=== PATIENT | male | born 1975 | race Caucasian/White ===

== ENCOUNTER 2018-09-12 16:12 | Emergency (ER) | payer OTHER, SELFPAY ==
[2018-09-12 16:19] VITALS: BP 140/87; PULSE 80; RESP 18; TEMP 36.7; O2SAT 97
--- NOTE | 2018-09-12 16:48 | W.ED.GENAD ---
Discharge Plan Disposition Patient Disposition: HOME Condition: Fair Discharge Details Chief Complaint: Laceration Clinical Impression: Finger laceration Primary Care Provider: Patricia Kang ED Provider: Rosalinda Braden Home Meds and New Rx's Prescriptions: Continue valacyclovir 500 mg Tablet 1,000 mg PO TID PRN PRNRF: 0 Discharge Instructions Instructions: Finger Laceration (ED) Additional Instructions: Keep wound clean, dry, covered. Tylenol and/or ibuprofen as needed for discomfort. Please keep current dressing on for the next 24 hours. After that you may keep covered with Band-Aid. Continue to burton tape the fingers together to help with pain and swelling of the afflicted joints. Please return in 1 week for suture removal. If you develop signs of infection such as redness, warmth, drainage, increased pain, fever/chills or other new/worsening symptoms please seek care urgently once again. You may wash and running water but please do not soak as this may increase your risk of infection Referrals: Patricia Kang [Primary Care Provider] - Discharge Data Discharge Date/Time-TO BE ENTERED AT DEPARTURE: 09/12/18 18:32 Medical Decision Making Patient is a 43-year-old [id number] male presenting today with chief complaint of left hand injury. He reports that prior to arrival, while at work, his third and fourth digits were crushed between a loading dock and a truck. Reports he was quite quick and that he was able to stop the expansion of the loading dock immediately. Suffered a small lacerations to the PIP joint on the flexor surface of the third and fourth digits. Denies any altered sensation. 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 Has noted swelling and ecchymosis over the afflicted PIP joints. On exam, no ligamentous injury is noted. He has full ROM, sensation intact. Pain is minimal. However, given the swelling and mechanism of injury I am concerned for possible bony abnormality. Will obtain XR. Plan to close the wound over the flexor surface of the PIP joint of the 3rd digit as this is into the subcutaneous tissue. Wound opens with gentle extension of the digit. Patient is not UTD on tetanus, we will update this today. X-ray reviewed by radiologist. Advised mild swelling of the hand soft tissues but no fracture dislocation noted. Discussed closure of the wound to the third digit with the patient. Patient is a 7 mm wound to the subcutaneous tissue that with extension. This is directly over the PIP joint on the flexor surface. Procedure note: Using standard sterile technique, 1% lidocaine plain was used to perform a digital block. 5 cc was infiltrated. Patient tolerated this well and was sufficiently anesthetized the digit. The wound of both digits was then copiously irrigated with sterile saline and cleansed with chlorhexidine. Wounds are reported to base in bloodless field no foreign body or debris was noted. Attention was then turned to closure of the wound of the third digit. #2 simple interrupted stitches were placed using 5-0 nylon. Patient tolerated this well and extradural bandage was placed over both wounds. Wounds were then burton taped together to help with PIP discomfort. Discussed wound care with the patient. Encouraged LUANNE. ADvised she come back in one week for suture removal. We discussed new/worsening symptoms and when to seek care once again. In particuar, we discussed the signs and symptoms of infection. Discussed activites that he should avoid. As work involves soaking his hand, I have given work note. He will continue to splint and cocver wound. Disuccsed new/worsening symptom sand when to seek care urgently once again. A HPI General Mode of arrival: ambulatory. Date/Time Provider Initiated Documentation: 09/12/18 16:18. Limitations to Documentation: no limitations. Information obtained by: patient. History of Present Illness 43 year old M presents to the emergency department with the chief complaint of left hand injury, described as mild, with intensity rated at 2. Quality is described as aching, and is localized to the left and upper extremity. Patient reports no radiation. and it has been now resolved (reports that pain has greatly improved). Immobilization improves symptom(s), Movement worsens symptoms . Patient notes no other symptoms.; denies fever/chills and rash. Patient did receive the following treatments prior to arrival, none Related Data Home Medications Medication Instructions Recorded Confirmed valacyclovir 1,000 mg PO TID PRN PRN 09/12/18 09/12/18 Allergies Allergy/AdvReac Type Severity Reaction Status Date / Time No Known Allergies Allergy Unverified 08/20/17 14:37 General Stated Complaint: Laceration ADRYAN: 4 Review of Systems Constitutional Reports as per HPI and Denies weakness Musculoskeletal Reports as per HPI and Denies tingling Integumentary/Breasts Reports as per HPI Neurologic Denies radicular pain, Denies sensory deficit, Denies tingling, Denies paresthesias and Denies weakness [facility] Social History Smoking/Tobacco Use Status: Current every day Exam Const General: cooperative, healthy appearing, comfortable, no acute distress, well developed and well groomed Nutritional Appearance: average body habitus and well nourished Orientation: alert and awake Eyes General: appearance normal, both eyes and all related structures Resp Effort & Inspection: normal respiratory effort, able to speak in complete sentences and no respiratory distress Cardio Rate: regular rate Rhythm: regular rhythm Skin Lesions: lesions noted (Exam of the LUE significant for laceration into the subcutaneous tissue over the PIP joint of the 3rd digit. Full ROM, no evidence of ligamentous or bony abnormality. Brisk capillary refill. Full ROM. Second laceration 4mm in length . No surroudning area to suggest infection) Neuro General: alert and awake Cognition: normal cognition Speech: speech normal Gait: normal gait Motor: muscle tone normal throughout and strength 5/5 throughout Sensory Exam: no sensory deficits noted (2point intact) Extrem General: abnormal to inspection (patient has lacerations as above. Swelling to the PIP joint of te affected digits. Senstation intact. ), normal capillary refill and normal exam except as noted Psych Appearance: grossly normal and well kempt Mental Status: mental status grossly normal Speech and Movement: speech and movement normal Course Vital Signs Temperature 36.7 C 09/12/18 16:19 Pulse 80 09/12/18 16:19 Respiratory Rate 18 09/12/18 16:19 Blood Pressure 140/87 09/12/18 16:19 Pulse Oximetry 97 09/12/18 16:19 Temperature 36.7 C 09/12/18 16:19 Temperature Source Skin 09/12/18 16:19 Pulse 80 09/12/18 16:19 Respiratory Rate 18 09/12/18 16:19 Respiratory Effort 09/12/18 16:21 Blood Pressure 140/87 09/12/18 16:19 Blood Pressure Position Sitting 09/12/18 16:19 Pulse Oximetry 97 09/12/18 16:19 Oxygen Delivery Method Room Air 09/12/18 16:19 Oxygen Flow Rate 0 09/12/18 16:19 Pain Level 2 09/12/18 16:21
--- NOTE | 2018-09-12 17:17 | ED.GENADUL_ITS ---
Discharge Plan Disposition Patient Disposition: HOME Condition: Fair Discharge Details Chief Complaint: Laceration Clinical Impression: Finger laceration Primary Care Provider: Patricia Kang ED Provider: Rosalinda Braden Home Meds and New Rx's Prescriptions: Continue valacyclovir 500 mg Tablet 1,000 mg PO TID PRN PRNRF: 0 Discharge Instructions Instructions: Finger Laceration (ED) Additional Instructions: Keep wound clean, dry, covered. Tylenol and/or ibuprofen as needed for discomfort. Please keep current dressing on for the next 24 hours. After that you may keep covered with Band-Aid. Continue to burton tape the fingers together to help with pain and swelling of the afflicted joints. Please return in 1 week for suture removal. If you develop signs of infection such as redness , warmth, drainage, increased pain, fever/chills or other new/worsening symptoms please seek care urgently once again. You may wash and running water but please do not soak as this may increase your risk of infection Referrals: Patricia Kang [Primary Care Provider] - Discharge Data Discharge Date/Time-TO BE ENTERED AT DEPARTURE: 09/12/18 18:32 Medical Decision Making Patient is a 43-year-old [id number]-[id number] male presenting today with chief complaint of left hand injury. He reports that prior to arrival, while at work , his third and fourth digits were crushed between a loading dock and a truck. Reports he was quite quick and that he was able to stop the expansion of the loading dock immediately. Suffered a small lacerations to the PIP joint on the flexor surface of the third and fourth digits. Denies any altered sensation. 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 Has noted swelling and ecchymosis over the afflicted PIP joints. On exam, no ligamentous injury is noted. He has full ROM, sensation intact. Pain is minimal. However, given the swelling and mechanism of injury I am concerned for possible bony abnormality. Will obtain XR. Plan to close the wound over the flexor surface of the PIP joint of the 3rd digit as this is into the subcutaneous tissue. Wound opens with gentle extension of the digit. Patient is not UTD on tetanus, we will update this today. X-ray reviewed by radiologist. Advised mild swelling of the hand soft tissues but no fracture dislocation noted. Discussed closure of the wound to the third digit with the patient. Patient is a 7 mm wound to the subcutaneous tissue that with extension. This is directly over the PIP joint on the flexor surface. Procedure note: Using standard sterile technique, 1% lidocaine plain was used to perform a digital block. 5 cc was infiltrated. Patient tolerated this well and was sufficiently anesthetized the digit. The wound of both digits was then copiously irrigated with sterile saline and cleansed with chlorhexidine. Wounds are reported to base in bloodless field no foreign body or debris was noted. Attention was then turned to closure of the wound of the third digit. # 2 simple interrupted stitches were placed using 5-0 nylon. Patient tolerated this well and extradural bandage was placed over both wounds. Wounds were then burton taped together to help with PIP discomfort. Discussed wound care with the patient. Encouraged LUANNE. ADvised she come back in one week for suture removal. We discussed new/worsening symptoms and when to seek care once again. In particuar, we discussed the signs and symptoms of infection. Discussed activites that he should avoid. As work involves soaking his hand, I have given work note. He will continue to splint and cocver wound. Disuccsed new/worsening symptom sand when to seek care urgently once again. A HPI General Mode of arrival: ambulatory . Date/Time Provider Initiated Documentation: 09/12/18 16:18 . Limitations to Documentation: no limitations . Information obtained by: patient . History of Present Illness 43 year old M presents to the emergency department with the chief complaint of left hand injury, described as mild, with intensity rated at 2. Quality is described as aching, and is localized to the left and upper extremity. Patient reports no radiation. and it has been now resolved (reports that pain has greatly improved). Immobilization improves symptom(s), Movement worsens symptoms . Patient notes no other symptoms.; denies fever/chills and rash. Patient did receive the following treatments prior to arrival, none Related Data Home Medications Medication Instructions Recorded Confirmed valacyclovir 1,000 mg PO TID PRN PRN 09/12/18 09/12/18 Allergies Allergy/AdvReac Type Severity Reaction Status Date / Time No Known Allergies Allergy Unverified 08/20/17 14:37 General Stated Complaint: Laceration ADRYAN: 4 Review of Systems Constitutional Reports as per HPI and Denies weakness Musculoskeletal Reports as per HPI and Denies tingling Integumentary/Breasts Reports as per HPI Neurologic Denies radicular pain, Denies sensory deficit, Denies tingling, Denies paresthesias and Denies weakness [facility] Social History Smoking/Tobacco Use Status: Current every day Exam Const General: cooperative, healthy appearing, comfortable, no acute distress, well developed and well groomed Nutritional Appearance: average body habitus and well nourished Orientation: alert and awake Eyes General: appearance normal, both eyes and all related structures Resp Effort & Inspection: normal respiratory effort, able to speak in complete sentences and no respiratory distress Cardio Rate: regular rate Rhythm: regular rhythm Skin Lesions: lesions noted (Exam of the LUE significant for laceration into the subcutaneous tissue over the PIP joint of the 3rd digit. Full ROM, no evidence of ligamentous or bony abnormality. Brisk capillary refill. Full ROM. Second laceration 4mm in length . No surroudning area to suggest infection) Neuro General: alert and awake Cognition: normal cognition Speech: speech normal Gait: normal gait Motor: muscle tone normal throughout and strength 5/5 throughout Sensory Exam: no sensory deficits noted (2point intact) Extrem General: abnormal to inspection (patient has lacerations as above. Swelling to the PIP joint of te affected digits. Senstation intact. ), normal capillary refill and normal exam except as noted Psych Appearance: grossly normal and well kempt Mental Status: mental status grossly normal Speech and Movement: speech and movement normal Course Vital Signs Temperature 36.7 C 09/12/18 16:19 Pulse 80 09/12/18 16:19 Respiratory Rate 18 09/12/18 16:19 Blood Pressure 140/87 09/12/18 16:19 Pulse Oximetry 97 09/12/18 16:19 Temperature 36.7 C 09/12/18 16:19 Temperature Source Skin 09/12/18 16:19 Pulse 80 09/12/18 16:19 Respiratory Rate 18 09/12/18 16:19 Respiratory Effort 09/12/18 16:21 Blood Pressure 140/87 09/12/18 16:19 Blood Pressure Position Sitting 09/12/18 16:19 Pulse Oximetry 97 09/12/18 16:19 Oxygen Delivery Method Room Air 09/12/18 16:19 Oxygen Flow Rate 0 09/12/18 16:19 Pain Level 2 09/12/18 16:21
--- NOTE | 2018-09-12 17:22 | DI.RAD_ITS ---
SYMPTOM/DIAGNOSIS: CRUSH INJURY, PAIN, SWELLING LEFT HAND: Three views were obtained. No fracture is seen.
--- NOTE | 2018-09-12 17:31 | DI.VRAD_ITS ---
EXAM: XR Left Hand Complete, 3 or more Views EXAM DATE/TIME: 09/12/2018 5:23 PM CLINICAL HISTORY: 43 years old, male; Injury or trauma; Injury history: Blunt trauma, crush injury; Work related; Initial encounter; Blunt trauma (contusions or hematomas and crushing; Hand; Left; Injury date: 09/12; Injury details: Crush injury to 3rd and 4th digits. TECHNIQUE: XR Left hand 3 or more views. COMPARISON: No relevant prior studies available. FINDINGS: Bones/joints: Normal. Soft tissues: Mild swelling of the hand soft tissues. IMPRESSION: No fracture or dislocation. Dictated and Authenticated by: Ruddy Lombardo MD. Ordering:EZ SOLIS MD
[2018-09-12 18:13] VITALS: BP 122/75; PULSE 64; RESP 18; TEMP 36.8; O2SAT 97
== END 2018-09-12 18:32 | disposition home or self-care (01) ==
PROVIDERS: Emergency Provider Physician Assistant; PCP Nurse Practitioner Family
DX: S67.195A Crushing injury of left ring finger, initial encounter (principal); S67.197A Crushing injury of left little finger, initial encounter; S61.215A Laceration without foreign body of left ring finger without damage to nail, initial encounter; S61.217A Laceration without foreign body of left little finger without damage to nail, initial encounter; Y99.0 Civilian activity done for income or pay; W23.0XXA Caught, crushed, jammed, or pinched between moving objects, initial encounter
CPT/HCPCS: 12001; 90471; 99283; 73130; 99282

== ENCOUNTER 2018-09-20 18:42 | Emergency (ER) | payer SELFPAY ==
[2018-09-20 18:47] VITALS: BP 148/92; PULSE 76; RESP 18; TEMP 36.6; O2SAT 97
--- NOTE | 2018-09-20 18:51 | W.ED.GENAD ---
Discharge Plan Disposition Patient Disposition: HOME Condition: Improving Discharge Details Chief Complaint: SutureRem Clinical Impression: Visit for suture removal Primary Care Provider: Patricia Kang ED Provider: Baldemar Ferrari Home Meds and New Rx's Prescriptions: Continue valacyclovir 500 mg Tablet 1,000 mg PO TID PRN PRNRF: 0 Discharge Instructions Additional Instructions: Return for any acute concerns Resume normal routine. Medical Decision Making 43-year-old male presents for suture removal. He is laceration has been healing uneventfully and is without other complaint. Sutures removed and patient stable for discharge HPI General Mode of arrival: ambulatory. Date/Time Provider Initiated Documentation: 09/20/18 18:50. Limitations to Documentation: no limitations. Information obtained by: patient. History of Present Illness 43 year old M presents to the emergency department with the chief complaint of Suture removal, no other complaint, HPI Narrative: Patient states his right long finger, laceration has been healing well he presents for suture removal without other complaints Related Data Home Medications Medication Instructions Recorded Confirmed valacyclovir 1,000 mg PO TID PRN PRN 09/12/18 09/20/18 Allergies Allergy/AdvReac Type Severity Reaction Status Date / Time No Known Allergies Allergy Unverified 09/20/18 18:50 General Stated Complaint: SutureRem ADRYAN: 5 PFSH Social History Smoking/Tobacco Use Status: Current every day Exam Narrative Exam Narrative: GEN: awake, alert, oriented 3. Pleasant, well groomed, interactive. EXT: Full ROM, no edema, no rash. Right long finger with healing laceration on the palmar surface, [address] Normal range of motion Neuro: Grossly normal neurologic exam, conversant, interactive. Psych: Speech fluent, thoughts congruent, affect normal Course Vital Signs Temperature 36.6 C 09/20/18 18:47 Pulse 76 09/20/18 18:47 Respiratory Rate 18 09/20/18 18:47 Blood Pressure 148/92 H 09/20/18 18:47 Pulse Oximetry 97 09/20/18 18:47 Temperature 36.6 C 09/20/18 18:47 Temperature Source Skin 09/20/18 18:47 Pulse 76 09/20/18 18:47 Respiratory Rate 18 09/20/18 18:47 Respiratory Effort 09/20/18 18:49 Blood Pressure 148/92 H 09/20/18 18:47 Blood Pressure Position Sitting 09/20/18 18:47 Pulse Oximetry 97 09/20/18 18:47 Oxygen Delivery Method Room Air 09/20/18 18:47 Oxygen Flow Rate 0 09/20/18 18:47 Pain Level 0 09/20/18 18:47
[2018-09-20 18:53] VITALS: BP 148/92; PULSE 76; RESP 18; TEMP 36.6; O2SAT 97
--- NOTE | 2018-09-20 18:54 | ED.GENADUL_ITS ---
Discharge Plan Disposition Patient Disposition: HOME Condition: Improving Discharge Details Chief Complaint: SutureRem Clinical Impression: Visit for suture removal Primary Care Provider: Patricia Kang ED Provider: Baldemar Ferrari Home Meds and New Rx's Prescriptions: Continue valacyclovir 500 mg Tablet 1,000 mg PO TID PRN PRNRF: 0 Discharge Instructions Additional Instructions: Return for any acute concerns Resume normal routine. Medical Decision Making 43-year-old male presents for suture removal. He is laceration has been healing uneventfully and is without other complaint. Sutures removed and patient stable for discharge HPI General Mode of arrival: ambulatory . Date/Time Provider Initiated Documentation: 09/20/18 18:50 . Limitations to Documentation: no limitations . Information obtained by: patient . History of Present Illness 43 year old M presents to the emergency department with the chief complaint of Suture removal, no other complaint, HPI Narrative: Patient states his right long finger, laceration has been healing well he presents for suture removal without other complaints Related Data Home Medications Medication Instructions Recorded Confirmed valacyclovir 1,000 mg PO TID PRN PRN 09/12/18 09/20/18 Allergies Allergy/AdvReac Type Severity Reaction Status Date / Time No Known Allergies Allergy Unverified 09/20/18 18:50 General Stated Complaint: SutureRem ADRYAN: 5 PFSH Social History Smoking/Tobacco Use Status: Current every day Exam Narrative Exam Narrative: GEN: awake, alert, oriented 3. Pleasant, well groomed, interactive. EXT: Full ROM, no edema, no rash. Right long finger with healing laceration on the palmar surface, [address] Normal range of motion Neuro: Grossly normal neurologic exam, conversant, interactive. Psych: Speech fluent, thoughts congruent, affect normal Course Vital Signs Temperature 36.6 C 09/20/18 18:47 Pulse 76 09/20/18 18:47 Respiratory Rate 18 09/20/18 18:47 Blood Pressure 148/92 H 09/20/18 18:47 Pulse Oximetry 97 09/20/18 18:47 Temperature 36.6 C 09/20/18 18:47 Temperature Source Skin 09/20/18 18:47 Pulse 76 09/20/18 18:47 Respiratory Rate 18 09/20/18 18:47 Respiratory Effort 09/20/18 18:49 Blood Pressure 148/92 H 09/20/18 18:47 Blood Pressure Position Sitting 09/20/18 18:47 Pulse Oximetry 97 09/20/18 18:47 Oxygen Delivery Method Room Air 09/20/18 18:47 Oxygen Flow Rate 0 09/20/18 18:47 Pain Level 0 09/20/18 18:47
== END 2018-09-20 18:56 | disposition home or self-care (01) ==
LOC: ER 18:58
PROVIDERS: Emergency Provider Emergency Medicine; PCP Nurse Practitioner Family
DX: S61.213D Laceration without foreign body of left middle finger without damage to nail, subsequent encounter (principal); W23.0XXD Caught, crushed, jammed, or pinched between moving objects, subsequent encounter; Z48.02 Encounter for removal of sutures

== ENCOUNTER 2018-10-11 10:06 | Outpatient (REF) | payer BC, SELFPAY ==
[2018-10-11 13:19] LABS: Cholesterol 192 mg/dL (50-200); HDL Cholesterol 42 mg/dL (40-60); LDL CHOLESTEROL 140 mg/dL (<100); TSH (W/Ref FT4) 3.83 uIU/mL (0.358-3.74); Triglyceride 102 mg/dL (30-150)
[2018-10-11 14:00] LABS: FREE T4 0.71 ng/dL (0.76-1.46)
== END 2018-10-11 10:26 ==
LOC: NCHCN 10:06
PROVIDERS: PCP Nurse Practitioner Family; Visit Provider Nurse Practitioner Family
DX: Z00.00 Encounter for general adult medical examination without abnormal findings (principal); Z13.29 Encounter for screening for other suspected endocrine disorder; Z13.220 Encounter for screening for lipoid disorders
CPT/HCPCS: 80061; 83721; 84439; 84443

== ENCOUNTER 2021-04-14 18:56 | Outpatient (REF) | payer BC, SELFPAY ==
[2021-04-14 16:55] LABS: Anion Gap 10.2 mmol/L (3-11); BUN 18 mg/dL (7-18); CO2 25.8 mmol/L (21.0-32.0); CREATININE 0.9 mg/dL (0.70-1.30); Calcium 8.7 mg/dL (8.5-10.1); Calculated LDL 111 mg/dL (<100); Chloride 106 mmol/L (98-107); Cholesterol 166 mg/dL (<200); Glucose 108 mg/dL (74-106); HDL Cholesterol 37 mg/dL (40-60); Sodium 142 mmol/L (136-145); TSH (W/Ref FT4) 2.66 uIU/mL (0.36-3.74); Triglyceride 90 mg/dL (<150)
== END 2021-04-14 18:57 | disposition home or self-care (01) ==
LOC: NCHCN 18:56
PROVIDERS: PCP Nurse Practitioner Family; Visit Provider Nurse Practitioner Family
DX: E03.9 Hypothyroidism, unspecified (principal); Z00.00 Encounter for general adult medical examination without abnormal findings; Z13.220 Encounter for screening for lipoid disorders
CPT/HCPCS: 80048; 80061; 84443

== ENCOUNTER 2025-01-02 16:57 | Outpatient (REF) | payer BC, SELFPAY ==
[2025-01-02 16:38] LABS: ALT 48 U/L (16-63); AST 33 U/L (15-37); Albumin 3.9 g/dL (3.4-5.0); Alkaline Phosphatase 87 U/L (46-116); Anion Gap 7.8 mmol/L (3-11); BUN 24 mg/dL (7-18); Bilirubin, Total 0.25 mg/dL (0.2-1.0); CO2 25.2 mmol/L (21.0-32.0); Calcium 9.3 mg/dL (8.5-10.1); Calculated LDL 130 mg/dL (<100); Chloride 105 mmol/L (98-107); Cholesterol 207 mg/dL (<200); Estimated GFR 93.42 (mL/min/1.73m2); Glucose 117 mg/dL (74-106); HDL Cholesterol 42 mg/dL (40-60); Potassium 4.3 mmol/L (3.5-5.1); Sodium 138 mmol/L (136-145); Total Protein 7.4 g/dL (6.4-8.2); Triglyceride 179 mg/dL (<150)
[2025-01-02 17:08] LABS: Hemoglobin A1C 5.7 % (<5.7)
== END 2025-01-02 16:58 | disposition home or self-care (01) ==
LOC: NCHCN 16:57
PROVIDERS: PCP Nurse Practitioner Family; Visit Provider Nurse Practitioner Family
DX: Z13.1 Encounter for screening for diabetes mellitus (principal); F41.9 Anxiety disorder, unspecified; Z13.220 Encounter for screening for lipoid disorders
CPT/HCPCS: 80053; 80061; 83036